=== PATIENT | male | born 1960 | race Caucasian/White ===

== ENCOUNTER 2016-06-04 06:05 | Emergency (ER) | payer MEDICARE, SELFPAY ==
[2016-06-04 06:52] LABS: BASO # 0.1 10_X3_uL (0.0-0.1); BASO % 0.6 % (0.2-1.2); EOS # 0.3 10_X3_uL (0.0-0.5); EOS % 2.6 % (0.8-7.0); GRAN # 7.6 10_X3_uL (1.8-5.4); GRAN % 69.8 % (34.0-67.9); HEMATOCRIT 45.6 % (40-51); HEMOGLOBIN 15.6 g/dL (13.7-17.5); LYMPH # 2.3 10_X3_uL (1.3-3.6); LYMPH % 21.6 % (21.8-53.1); MEAN CORPUSCULAR HEMOGLOBIN 29.7 pg (27.0-33.0); MEAN CORPUSCULAR HGB CONC 34.2 g/dL (32.0-36.0); MEAN CORPUSCULAR VOLUME 86.7 fL (79-92); MEAN PLATELET VOLUME 9.9 fl (7.5-11.5); MONO # 0.6 10_X3_uL (0.3-0.8); MONO % 5.4 % (5.3-12.2); PLATELET COUNT 188 x10_3/uL (163-337); RED BLOOD COUNT 5.26 x10_6/uL (4.6-6.1); RED CELL DISTRIBUTION WIDTH 13.5 % (11.6-14.4); WHITE BLOOD COUNT 10.8 x10_3/uL (4.2-9.1)
[2016-06-04 07:03] LABS: URINE BILIRUBIN NEGATIVE (NEGATIVE); URINE BLOOD NEGATIVE (NEGATIVE); URINE GLUCOSE (UA) NORMAL (NORMAL); URINE KETONE NEGATIVE (NEGATIVE); URINE LEUKOCYTE ESTERASE NEGATIVE (NEGATIVE); URINE NITRATE NEGATIVE (NEGATIVE); URINE PROTEIN NEGATIVE (NEGATIVE); UROBILINOGEN NORMAL mg/dL (<1.0)
[2016-06-04 07:07] LABS: ALBUMIN 4.5 gm/dL (3.4-5.0); ALKALINE PHOSPHATASE 89 U/L (50-136); ALT/SGPT 33 U/L (7.53-40.17); AST/SGOT 24 U/L (6.66-35.34); BILIRUBIN,TOTAL 0.43 mg/dL (0.0-1.0); BLOOD UREA NITROGEN 5 mg/dL (7-18); CALCIUM 9.2 mg/dL (8.7-10.7); CARBON DIOXIDE 25 mmol/L (21-32); CREATININE 0.8 mg/dL (0.6-1.3); GLUCOSE,RANDOM 142 mg/dL (70-99); POTASSIUM 4.5 mmol/L (3.5-5.1); SODIUM 141 mmol/L (136-145)
== END 2016-06-04 08:11 | disposition home or self-care (01) ==
LOC: ER 06:05
PROVIDERS: Emergency Medicine
DX: R10.9 Unspecified abdominal pain (principal); E11.9 Type 2 diabetes mellitus without complications; I10 Essential (primary) hypertension; G89.29 Other chronic pain; M54.9 Dorsalgia, unspecified; Z95.1 Presence of aortocoronary bypass graft; Z95.5 Presence of coronary angioplasty implant and graft; Z79.82 Long term (current) use of aspirin; Z79.899 Other long term (current) drug therapy; Z79.84 Long term (current) use of oral hypoglycemic drugs
CPT/HCPCS: 36415; 80053; 81003; 85025; 96374; 99070; 99284; 99284-25